=== PATIENT | female | born 2000 | race Caucasian/White ===

== ENCOUNTER 2022-09-22 17:41 | Emergency (ER) | payer OTHER, SELFPAY ==
[2022-09-22 17:43] VITALS: BP 129/86; PULSE 100; RESP 22; TEMP 36.6; O2SAT 92; BMI 21.7
[2022-09-22 20:29] LABS: Bacteria 0 SEEN /hpf (None Seen); Mucous, Urine 0 SEEN /hpf (<or=2+); Red Blood Cells-Urine 0 SEEN /hpf (0-5); White Blood Cells 0 SEEN /hpf (0-5)
[2022-09-22 20:35] LABS: Color, Urine Yellow (Yellow); Glucose, Dipstick Normal (Normal); Leukocyte Esterase-Dipstick 25 /ul (Negative); Nitrite-Dipstick Negative (Negative); Occult Blood-Urine Negative /ul (Negative); Protein-Dipstick 100 mg/dl (Negative); Specific Gravity, Urine 1.025 (1.002-1.030); Urine Bilirubin Dipstick Negative (Negative); Urine Clarity Clear (Clear); Urine Urobilinogen Normal (Normal)
[2022-09-22 20:43] LABS: Ketone-Dipstick 150 mg/dl (Negative)
--- NOTE | 2022-09-22 20:45 | ED.VIS.GI ---
HPI HPI - GI History of Present Illness Chief Complaint: Nausea/Vomiting PFSH PFSH Allergy/AdvReac Type Severity Reaction Status Date / Time No Known Allergies Allergy Verified 09/22/22 17:43 Surgical History no surgical history Social History (Updated 09/22/22 @ 22:[address] Mayo Joseph MD) household members: significant other Smoking Status: Never smoker substance use type: marijuana EXAM Physical Exam Const Vital Signs: 09/22/22 17:43 Temperature 98 F Temperature Source Temporal Pulse Rate 100 Respiratory Rate 22 H Blood Pressure 129/86 H Blood Pressure Mean 100 Pulse Ox 92 Oxygen Delivery Method Room Air [facility] Lab Data Labs: Laboratory Results - last 24 hr 09/22/22 09/22/22 09/22/22 20:20 21:31 21:31 WBC 7.7 RBC 4.62 Hgb 13.5 Hct 40.8 MCV 88.3 MCH 29.2 MCHC 33.1 RDW Std Deviation 41.4 RDW Coeff of Willis 12.8 Plt Count 291 MPV 9.1 Immature Gran % (Auto) 0.300 Neut % (Auto) 86.7 H Lymph % (Auto) 11.7 L [place] % (Auto) 1.2 Eos % (Auto) 0.0 Baso % (Auto) 0.1 Absolute Neuts (auto) 6.7 Absolute Lymphs (auto) 0.90 Nucleated RBC % 0 Sodium 138 Potassium 4.0 Chloride 105 Carbon Dioxide 19.0 L Anion Gap 14 BUN 12 Creatinine 0.89 Estim Creat Clear Calc 87.07 Est GFR (MDRD) Af Amer 104 Est GFR (MDRD) Non-Af 86 BUN/Creatinine Ratio 13.5 Glucose 90 Calcium 9.6 Serum , Qual Urine Color Yellow Urine Clarity Clear Urine pH 6.0 Ur Specific [place] 1.025 Urine Protein 100 H Urine Glucose (UA) Normal Urine Ketones 150 A* Urine Occult Blood Negative Urine Nitrite Negative Urine Bilirubin Negative Urine Urobilinogen Normal Ur Leukocyte Esterase 25 H Urine RBC 0 SEEN Urine WBC 0 SEEN Ur Squamous Epith Cells 0-5 SEEN Urine Bacteria 0 SEEN Urine Mucus 0 SEEN 09/22/22 21:31 WBC RBC Hgb Hct MCV MCH MCHC RDW Std Deviation RDW Coeff of Willis Plt Count MPV Immature Gran % (Auto) Neut % (Auto) Lymph % (Auto) [place] % (Auto) Eos % (Auto) Baso % (Auto) Absolute Neuts (auto) Absolute Lymphs (auto) Nucleated RBC % Sodium Potassium Chloride Carbon Dioxide Anion Gap BUN Creatinine Estim Creat Clear Calc Est GFR (MDRD) Af Amer Est GFR (MDRD) Non-Af BUN/Creatinine Ratio Glucose Calcium Serum , Qual NEGATIVE Urine Color Urine Clarity Urine pH Ur Specific [place] Urine Protein Urine Glucose (UA) Urine Ketones Urine Occult Blood Urine Nitrite Urine Bilirubin Urine Urobilinogen Ur Leukocyte Esterase Urine RBC Urine WBC Ur Squamous Epith Cells Urine Bacteria Urine Mucus Discharge Plan Triage Chief Complaint: Nausea/Vomiting ED Provider: Mayo Joseph Dx/Rx/DC Orders Clinical Impression: Cyclical vomiting syndrome, Depression with anxiety, Cannabis use with anxiety disorder, Acidosis, metabolic, Dehydration, moderate, Ketosis Instructions: ED Cyclic Vomiting Syndrome, ED Dehydration (Adult) Primary Care Provider: Nely Park Referrals: Nely Park MD [Primary Care Provider] - 3-5 Days Activity Restrictions/Additional Instructions: You need to contact her psychiatrist and discuss use of antianxiety medicines versus marijuana. The daily use of marijuana is causing her to have abdominal pain and cyclic vomiting. Disposition Disposition: Home, Self Care Discharge Date/Time: 09/22/22 22:46
[2022-09-22 20:57] LABS: Squamous Epithelial Cells - UA 0-5 SEEN /hpf (5-10)
[2022-09-22] MEDS: 0.9% Normal Saline 1,000 ML 1000 ML IV (21:26)
[2022-09-22] MEDS: Ondansetron 4 MG/2 ML Vial IV (21:26)
[2022-09-22] MEDS: Famotidine 200 MG/20 ML MDV 20 MG in 0.9% Normal Saline (Pres. free 8 ML 300 MG IV (21:27)
[2022-09-22] MEDS: LORazepam 2 MG/ML Syringe 0.5 MG IV (21:27)
[2022-09-22 21:38] LABS: Absolute Neutrophil Count 6.7 X10^3/uL (2.0-7.7); Basophil# 0.01 X10^3/uL; Basophil% 0.1 % (0-1); Hematocrit 40.8 % (37-47); Hemoglobin 13.5 g/dL (12.0-15.0); Lymphocyte % 11.7 % (19-41); Mean Corp Hgb Conc 33.1 g/dL (32-36); Mean Corpuscular Hgb 29.2 pg (27.0-32.0); Mean Corpuscular Volume 88.3 fL (81-99); Mean Platelet Vol. 9.1 fl (6.2-12.0); Monocyte# 0.09 X10^3/uL; Monocyte% 1.2 % (0-10); NRBC Flagged by Analyzer 0 % (0-5); Neutrophil # 6.65 X10^3/uL (2.7-7.7); Neutrophil % 86.7 % (47-70); Platelet Count 291 K/mm3 (150-450); RBC Distribution Width CV 12.8 % (11.6-14.6); RBC Distribution Width SD 41.4 fl (35.1-43.9); Red Blood Count 4.62 M/mm3 (4.2-5.4); White Blood Count 7.7 K/mm3 (4.4-11.0)
[2022-09-22 21:51] LABS: Anion Gap 14 (5-15); BUN 12 mg/dL (7-18); BUN/Creat Ratio 13.5 RATIO (10-20); Calcium,Total 9.6 mg/dL (8.5-10.1); Chloride 105 mmol/L (98-107); Creatinine, Serum 0.89 mg/dL (0.55-1.02); EST Glomerular Filtration Rate 86 mL/min (>60); Est Glom Filt Rate - Afr Amer 104 mL/min (>60); Estimated Creatinine Clearance 87.07 ml/min; Glucose 90 mg/dL (74-106); Sodium Level 138 mmol/L (136-145)
[2022-09-22 21:52] LABS: Internal QC Validated? YES +Cl - CLEAR BKGD; Pregnancy, Serum, hCG Quali. NEGATIVE Negative
--- NOTE | 2022-09-22 22:28 | EDS_ITS ---
HPI History of Present Illness Chief Complaint: Nausea/Vomiting Detail of Chief Complaint: Generalized abdominal pain with nausea and vomiting Informant: patient Onset/Context/Timing Onset: Today Context: Sudden Onset Timing: Continuous Quality: Pain Location: Abdomen Current Severity: Moderate Maximum Severity: Severe Worsened by: Nothing specific Relieved by: Nothing Associated Symptoms Associated Symptoms: No other symptoms Narrative Narrative: Patient is a 22-year-old female with history of anxiety disorder, depression who presents with generalized abdominal pain with nausea vomiting. She does admit to daily marijuana use. She states she has a medical card. She uses this for stress. She does see a counselor. She denies fever, chills night sweats. She denies headache, visual, ocular auditory symptoms. She denies cardiac or respiratory symptoms. Patient denies myalgias or arthralgias. Patient denies skin lesions. Patient does endorse thirst, dry mouth and lightheadedness. Patient denies any ill contacts. Patient has had abdominal pain with nausea vomiting in the past. She does not believe it is due to daily marijuana use. Prior similar symptoms: Yes Recent Illness/Hospitalization: Yes PFSH PFSH Allergy/AdvReac Type Severity Reaction Status Date / Time No Known Allergies Allergy Verified 09/22/22 17:43 Surgical History no surgical history no surgical history Social History (Updated 09/22/22 @ 22:[address] Mayo Joseph MD) household members: significant other Smoking Status: Never smoker substance use type: marijuana ROS ROS ED Constitutional Constitutional ED: Denies chills, fever(s), subjective, sweats or weight loss Eyes Eyes: Denies blurry vision, change in vision or diplopia ENT ENT ED: Denies ear pain, rhinorrhea or sore throat Cardiovascular Cardiovascular: Denies chest pain or palpitations Respiratory/Chest Respiratory/Chest: Denies cough, dyspnea or dyspnea on exertion Gastrointestinal Gastrointestinal: Reports abdominal pain; Denies diarrhea, nausea or vomiting Genitourinary Genitourinary ED: Reports other Details: Patient endorses decreased urine output ; Denies dysuria, hematuria or urinary frequency Musculoskeletal Musculoskeletal: Denies arthralgias, back pain, myalgias or neck pain Integumentary Denies rash Neurologic Neurologic: Denies headache(s), paresthesias or weakness Psychiatric Psychiatric: Reports anxiety and depression; Denies suicidal ideation Endocrine Endocrinology: Denies cold intolerance or heat intolerance Hematologic/Lymphatic Hematologic/Lymphatic: Reports systems reviewed and no addt'l complaints, except as documented EXAM Physical Exam Const Vital Signs: 09/22/22 17:43 Temperature 98 F Temperature Source Temporal Pulse Rate 100 Respiratory Rate 22 H Blood Pressure 129/86 H Blood Pressure Mean 100 Pulse Ox 92 Oxygen Delivery Method Room Air Positive well nourished and well developed Constitutional Narrative: Patient appears pale. She appears ill. General Appearance ED: well developed and pallor; Negative for cyanotic or diaphoretic HEENT Reports dry mucous membranes HEENT Narrative: Head is atraumatic normocephalic. Ears normal. TMs normal. Nares patent. Mucosa dry. Posterior pharynx unremarkable. Mouth ED: Yes dry mucous membranes Mouth: dry mucous membranes Eyes PERRL General Eye ED: Negative for pale conjunctiva or scleral icterus Neck no lymphadenopathy, supple and no JVD Resp normal respiratory effort and clear to auscultation bilaterally GI non-distended; Negative for hepatosplenomegaly or no masses Inspection: abdominal distention Auscultation: hypoactive bowel sounds Palpation: soft and tender other (Diffuse); Negative for guarding or splenomegaly Back/Spine no CVA tenderness Cervical Spine: Negative for cervical spine tenderness Thoracic Spine / Upper Back: Negative for thoracic spinal tenderness Lumbar Spine / Lower Back: Negative for lumbar spinal tenderness Extremity normal to inspection Neuro oriented x3, CN's II-XII intact bilaterally and no sensory deficits noted Sensorium / Orientation: alert Motor Exam: strength 5/5 throughout Psych Mood & Affect: depressed Skin no rashes or lesions noted, no wounds and skin turgor normal General Skin Exam: pallor; Negative for elasticity normal or jaundice MDM MDM MDM Narrative Medical decision making narrative: Since patient is pale CBC was obtained to rule out anemia. Basic metabolic panel was obtained to assess CO2 anion gap and renal function. UA was obtained to assess spec gravity and ketones. Patient test was ordered per protocol. Suspect patient has cyclic vomiting due to daily cannabis use. Will assess for anemia, renal dysfunction etc. Lab Data Attestation: I reviewed the patient's lab results. Lab results narrative: CBC is unremarkable. Basic metabolic panel reveals a 9 anion gap acidosis. Renal function is normal. UA is remarkable for an elevated specific gravity of 1.025 and ketones. There is no evidence of infection. was not good. Labs: Laboratory Results - last 24 hr 0109/22/22 09/22/22 20:20 21:31 21:31 WBC 7.7 RBC 4.62 Hgb 13.5 Hct 40.8 MCV 88.3 MCH 29.2 MCHC 33.1 RDW Std Deviation 41.4 RDW Coeff of Willis 12.8 Plt Count 291 MPV 9.1 Immature Gran % (Auto) 0.300 Neut % (Auto) 86.7 H Lymph % (Auto) 11.7 L [place] % (Auto) 1.2 Eos % (Auto) 0.0 Baso % (Auto) 0.1 Absolute Neuts (auto) 6.7 Absolute Lymphs (auto) 0.90 Nucleated RBC % 0 Sodium 138 Potassium 4.0 Chloride 105 Carbon Dioxide 19.0 L Anion Gap 14 BUN 12 Creatinine 0.89 Estim Creat Clear Calc 87.07 Est GFR (MDRD) Af Amer 104 Est GFR (MDRD) Non-Af 86 BUN/Creatinine Ratio 13.5 Glucose 90 Calcium 9.6 Serum , Qual Urine Color Yellow Urine Clarity Clear Urine pH 6.0 Ur Specific [place] 1.025 Urine Protein 100 H Urine Glucose (UA) Normal Urine Ketones 150 A* Urine Occult Blood Negative Urine Nitrite Negative Urine Bilirubin Negative Urine Urobilinogen Normal Ur Leukocyte Esterase 25 H Urine RBC 0 SEEN Urine WBC 0 SEEN Ur Squamous Epith Cells 0-5 SEEN Urine Bacteria 0 SEEN Urine Mucus 0 SEEN 09/22/22 21:31 WBC RBC Hgb Hct MCV MCH MCHC RDW Std Deviation RDW Coeff of Willis Plt Count MPV Immature Gran % (Auto) Neut % (Auto) Lymph % (Auto) [place] % (Auto) Eos % (Auto) Baso % (Auto) Absolute Neuts (auto) Absolute Lymphs (auto) Nucleated RBC % Sodium Potassium Chloride Carbon Dioxide Anion Gap BUN Creatinine Estim Creat Clear Calc Est GFR (MDRD) Af Amer Est GFR (MDRD) Non-Af BUN/Creatinine Ratio Glucose Calcium Serum , Qual NEGATIVE Urine Color Urine Clarity Urine pH Ur Specific [place] Urine Protein Urine Glucose (UA) Urine Ketones Urine Occult Blood Urine Nitrite Urine Bilirubin Urine Urobilinogen Ur Leukocyte Esterase Urine RBC Urine WBC Ur Squamous Epith Cells Urine Bacteria Urine Mucus Treatment and Re-Evaluation Narrative: Patient was reassessed after she received meds for cyclic vomiting. Patient's symptoms are resolved. She is had no further vomiting. She looks better and reports feeling better. Discharge Plan Triage Chief Complaint: Nausea/Vomiting ED Provider: Mayo Joseph Dx/Rx/DC Orders Clinical Impression: Cyclical vomiting syndrome, Depression with anxiety, Cannabis use with anxiety disorder, Acidosis, metabolic, Dehydration, moderate, Ketosis Instructions: ED Cyclic Vomiting Syndrome, ED Dehydration (Adult) Primary Care Provider: Nely Park Referrals: Nely Park MD [Primary Care Provider] - 3-5 Days Activity Restrictions/Additional Instructions: You need to contact her psychiatrist and discuss use of antianxiety medicines versus marijuana. The daily use of marijuana is causing her to have abdominal pain and cyclic vomiting. Disposition Disposition: Home, Self Care
== END 2022-09-22 22:46 | disposition home or self-care (01) ==
PROVIDERS: Emergency Provider Emergency Medicine; Visit Provider Emergency Medicine
DX: R11.15 Cyclical vomiting syndrome unrelated to migraine (principal); E88.89 Other specified metabolic disorders; E86.0 Dehydration; F12.90 Cannabis use, unspecified, uncomplicated; F41.8 Other specified anxiety disorders; R10.84 Generalized abdominal pain; E87.20 Acidosis, unspecified
CPT/HCPCS: 80048; 81001; 84703; 85025; 96361; 96365; 96375; 99283; J7030; J2405; J3490